=== PATIENT | female | born 1940 | race Caucasian/White ===

== ENCOUNTER 2016-08-06 08:08 | Day surgery (SDC) | payer MEDICARE, OTHER ==
[2016-08-02 13:20] LABS: BASOPHILS 0.1 %; BASOPHILS ABSOLUTE 0.02 10/3/uL (0.0-0.16); EOSINOPHILS 0 %; IMMATURE GRANULOCYTES 0.3 %; IMMATURE GRANULOCYTES ABSOLUTE 0.04 10/3/uL (0.0-0.11); LYMPHOCYTES 12.9 %; LYMPHOCYTES ABSOLUTE 1.77 10/3/uL (0.67-4.30); MEAN CORPUS HGB CONC 33.3 g/dL (32.0-36.0); MEAN CORPUSCULAR HEMOGLOB 29.9 pg (26.0-34.0); MEAN CORPUSCULAR VOLUME 89.7 fL (80-100); MEAN PLATELET VOLUME 10.9 fL (9.2-13.0); MONOCYTES 4.7 %; MONOCYTES ABSOLUTE 0.64 10/3/uL (0.21-1.20); NEUTROPHILS ABSOLUTE 11.25 10/3/uL (2.02-8.40); PLATELET COUNT 262 10/3/uL (150-400); RBC DISTRIBUTION WIDTH 13.8 % (12.0-16.0); RED CELL COUNT 4.68 10/6/uL (4.0-5.6); WHITE BLOOD CELLS 13.7 10/3/uL (4.5-10.5)
[2016-08-02 13:21] LABS: MANUAL DIFF NO %
[2016-08-02 13:39] LABS: BUN (BLOOD UREA NITROGEN) 17 MG/DL (6-23); CALCIUM, SERUM 9.8 MG/DL (8.5-10.4); CHLORIDE, SERUM 101 MMOL/L (96-112); CO2 (CARBON DIOXIDE) 26 MMOL/L (24-34); GFR AFRICAN AMERICAN 56 ML/MIN (>=60); GFR NON AFRICAN AMERICAN 48 ML/MIN (>=60); POTASSIUM, SERUM 3.9 MMOL/L (3.5-5.3); SODIUM, SERUM 138 MMOL/L (135-148)
[2016-08-02 13:40] LABS: GLUCOSE, SERUM 125 MG/DL (60-99)
--- NOTE | ~2016-08-06 | OP ---
Record Of Operation [facility] [address] [place]. [address] NAME: CALEB MUNOZ : 38 STATUS : [facility]#: [id number] AGE: 76 ADM/REG DATE : 08/06/16 MR#: [id number] REPORT SERV DATE: 08/06/16 DICTATED BY: MACO FIELD DATE: 08/06/16 REPORT STATUS : Draft TRANSCRIBED BY: LEILA DATE: 08/06/16 DATE OF PROCEDURE: 08/06/2016 SURGEON: Maco Field D.P.M. PREOPERATIVE DIAGNOSIS: Instability, right talonavicular joint secondary to posterior tibial tendon dysfunction. POSTOPERATIVE DIAGNOSIS: Instability, right talonavicular joint secondary to posterior tibial tendon dysfunction. PROCEDURE: Right talonavicular joint arthrodesis. ANESTHESIA: General. HEMOSTASIS: 350 mmHg pneumatic ankle tourniquet. ESTIMATED BLOOD LOSS: Less than 5 mL. MATERIALS: Arthrex double compression plate, two 3.5 locking cortical screws, one 4.0 mm cancellous screw, and one 3.5 mm cortical screw. 2-0 Vicryl, 3-0 Vicryl, 4-0 Monocryl. Arthrex DBM bone putty, 1 mL. INJECTABLES: 20 mL of 1:1 mixture of 1% Xylocaine plain and 0.5% Marcaine plain. COMPLICATIONS: None. INDICATIONS: This is a 76-year-old female, who has had a longstanding history of pain in her right arch. The patient presented to the office with a unilateral right flat foot consistent with right posterior tibial tendon dysfunction. Clinical examination revealed tenderness to palpation near the plantar aspect of the right talonavicular joint and there was absorbable instability noted clinically as well as on weightbearing lateral radiographs which showed a plantar subluxation of the talar head at the talonavicular joint. Conservative care was attempted using an Niya type AFO. However, the patient had limited improvement in her symptoms. Based on the instability and her symptoms as well as her age, it was discussed with the patient that a talonavicular joint arthrodesis would help stabilize the medial column as well as with the talar head to a more rectus position therefore decreasing more plantar plain. We also discussed due to the mobility of the talonavicular joint by fusing this joint that it will further stabilize the right foot which has been unstable since the loss of posterior tibial tendon. Discussed with the patient the alternatives, benefits, and possible complications of surgical procedure. We discussed the procedure and recovery period in great detail. No problems or guarantees were given. The patient is scheduled for surgery. BRIEF SUMMARY OF THE OPERATION: The patient was brought to the operating table and transferred to the operating table in a supine position. Appropriate monitoring equipment Record Of Operation [address] [place]. [address] NAME: CALEB MUNOZ : 38 STATUS : [facility] PAT#: [id number] AGE: 76 ADM/REG DATE : 08/06/16 MR#: [id number] REPORT SERV DATE: 08/06/16 DICTATED BY: MACO FIELD DATE: 08/06/16 REPORT STATUS : Draft TRANSCRIBED BY: LEILA DATE: 08/06/16 including EKG, blood pressure, and pulse oximeter were attached to the patient and found to be in good working order. IV access was established by Anesthesia and the patient received preoperative antibiotics. After the patient was identified by the surgeon, general anesthesia was induced. The patient's right foot and leg were then prepped and draped in usual sterile manner. The right foot and leg were elevated and exsanguinated, and a pneumatic ankle tourniquet was raised to 350 mmHg. A medial curvilinear incision was made over the right medial column extending from the inferior aspect of the tibial malleolus into the area of the medial column just distal to the navicular cuneiform joint. The incision was deepened with sharp and blunt dissection, and superficial veins were identified and ligated via electrocautery. Neurovascular structures were identified and retracted from the operative site. Care was taken not to disrupt the medial marginal vein. Sharp dissection was carried out through the periosteal capsule layer and the right talonavicular joint was identified. Periosteal capsular tissue was dissected free from the medial aspect of the navicular and the talar head and neck were exposed. At this time, with a self-retaining retractor, the talonavicular joint was distracted and hyaline cartilage and subchondral bone were denuded from the articular surfaces of the navicular and talar head down to good cancellous bleeding bone. Once adequate removal of hyaline cartilage and subchondral bone was performed of both joint surfaces, the operative site was copiously irrigated with normal saline. The joint surfaces were then fenestrated with a K-wire. A self-retaining retractor was removed and the talonavicular joint was placed in a rectus position with temporary fixation achieved with a K-wire. Proper position of the temporary fixation as well as the talonavicular joint arthrodesis were confirmed via fluoroscopy. At this time, an Arthrex double compression plate was applied over the medial aspect of the talonavicular joint in order to fixate and compress the talonavicular joint arthrodesis. The plate was inserted via good AO technique with two 3.5 locking screws, one 4.0 mm cancellous screw, and one 3.5 mm cortical screw. Once the screws were in place, proper position of the plate was confirmed via fluoroscopy as well as proper position of the talonavicular joint via fluoroscopy. The site was further compressed by utilizing the compression device in the central portion of the plate. Once again, adequate position of the arthrodesis and internal fixation was confirmed via fluoroscopy as well as visually. The operative site was copiously irrigated with normal saline. 1 mL of Arthrex DBM bone putty was inserted at the fusion site. Periosteal capsular layer was then reapproximated with 2-0 Vicryl suture, subcutaneous tissue was reapproximated with 3-0 Vicryl suture, and skin was reapproximated with 4-0 Monocryl suture in a running, subcuticular fashion. Operative site was then infiltrated with 20 mL of 1:1 mixture of 1% Xylocaine plain and 0.5% Marcaine plain for postoperative analgesia. Standard postop dressing including Steri-Strips, Adaptic and dry sterile gauze applied to the right foot. The patient was then placed in a modified Sanders compression dressing along with an AO splint with the ankle joint in neutral position. The tourniquet was then let down and capillary refill was noted to return to toes immediately and be well within normal limits under 3 seconds. The patient tolerated the procedure and anesthesia well. The patient left the operating room and returned to recovery room with vital signs stable and vital signs intact. Neurovascular status of the operative extremity was confirmed to be within normal limits in the recovery room and postoperative instructions were reiterated to the person driving the Record Of [address] [place]. [address] NAME: CALEB MUNOZ : 38 STATUS : [facility]#: [id number] AGE: 76 ADM/REG DATE : 08/06/16 MR#: [id number] REPORT SERV DATE: 08/06/16 DICTATED BY: MACO FIELD DATE: 08/06/16 REPORT STATUS : Draft TRANSCRIBED BY: LEILA DATE: 08/06/16 patient home. The patient was instructed to keep both the splint and dressings on dry, covered, and clean. The patient was dispensed postop instructions and postop prescriptions. The patient was instructed on proper ice and elevation of the right lower extremity in order to reduce postoperative pain and swelling. The patient was instructed on strict nonweightbearing of the right foot. The patient was instructed to contact the office if any questions or concerns. The patient is scheduled to follow up in my office in approximately one week's time. ÓSCAR/LEILA Maco Field D.P.M. / [id number] CC: Dylan Langston M.D.
[~2016-08-06 08:08] MED LIST: ESTRACE1 MG PO; EYE VITAMINS PO; FISH-EPA1000 MG PO; HALF81 PO; PRILOSEC40 MG PO; ZESTORETIC1 TA1 PO
[2016-08-06 08:33] LABS: HEMATOCRIT 38.2 % (36.0-48.0); HEMOGLOBIN 12.6 g/dL (12.0-16.0); MEAN CORPUSCULAR HEMOGLOB 28.6 pg (26.0-34.0); PLATELET COUNT 323 10/3/uL (150-400); RBC DISTRIBUTION WIDTH 13.4 % (12.0-16.0); WHITE BLOOD CELLS 8.6 10/3/uL (4.5-10.5)
[2016-08-06 08:37] LABS: MANUAL DIFF YES %; MEAN CORPUSCULAR VOLUME 86.8 fL (80-100)
[2016-08-06 08:55] LABS: BAND NEUTROPHILS 4 %; BASOPHILS 1 %; BASOPHILS ABSOLUTE (CALC) 0.09 10/3/uL (0.0-0.16); EOSINOPHILS 1 %; EOSINOPHILS ABSOLUTE (CALC) 0.09 10/3/uL (0.0-0.53); LYMPHOCYTES 28 %; LYMPHOCYTES ABSOLUTE (CALC) 2.41 10/3/uL (0.67-4.30); MONOCYTES 9 %; MONOCYTES ABSOLUTE (CALC) 0.77 10/3/uL (0.21-1.20); NEUTROPHILS ABSOLUTE (CALC) 5.25 10/3/uL (2.02-8.40); PLATELET ESTIMATE ADQ (ADEQUATE); RBC MORPHOLOGY NORM (NORMAL); SEGMENTED NEUTROPHIL (0) 57 %; TOTAL NUCLEATED CELLS 100
[2016-08-06 08:56] LABS: TOXIC GRANULATION 1+
== END 2016-08-06 17:20 | disposition home or self-care (01) ==
LOC: SDC 08:08
PROVIDERS: Podiatrist
PROC: 0SGH0ZZ (ICD-10-PCS; principal; 2016-08-06 09:45)
DX: M25.374 Other instability, right foot (principal); M67.873 Other specified disorders of tendon, right ankle and foot; I10 Essential (primary) hypertension; K21.9 Gastro-esophageal reflux disease without esophagitis; K44.9 Diaphragmatic hernia without obstruction or gangrene; Z96.653 Presence of artificial knee joint, bilateral; Z79.899 Other long term (current) drug therapy; Z96.1 Presence of intraocular lens; Z98.41 Cataract extraction status, right eye; Z98.42 Cataract extraction status, left eye; Z90.710 Acquired absence of both cervix and uterus; Z90.49 Acquired absence of other specified parts of digestive tract; Z98.890 Other specified postprocedural states
CPT/HCPCS: 73630-RT; 76000; 80048; 85025; 93005; A9270-GY; C1713; C1769; J0690; J2250; J2405; J3010